=== PATIENT | male | born 1985 | race Caucasian/White ===

== ENCOUNTER 2016-10-10 06:27 | Emergency (ER) | payer OTHER ==
[~2016-10-10] VITALS: Ht 180.3 cm; Wt 79.5 kg
[~2016-10-10 06:27] MED LIST: ALBUTEROL17 GM INH; BENZONATATE PO; CIPRO XR 500 M500 MG PO; DELTASONE20 MG PO; DICYCLOMINE HCL20 MG PO; FLAGYL PO; METRONIDAZOLE PO; PEPCID AC20 M2 PO; PREDNISONE10 MG/DOSE PO; ROBITUSSIN A-C S5 ML PO; ZITHROMAX PO
[2016-10-10] MEDS ORDERED: KLONOPIN1 MG (06:35)
[2016-10-10 07:54] LABS: BASOPHIL# 0.1 X10e3 (0-0.3); BASOPHIL% 0.7 % (0-2.5); EOSINOPHIL# 0.2 X10e3 (0-0.7); EOSINOPHIL% 2.3 % (0.0-7.0); HEMATOCRIT 43.4 % (38.0-50.0); LYMPHOCYTE# 2.3 X10e3 (1.0-3.5); LYMPHOCYTE% 30.5 % (17.0-45.0); MEAN CELL VOLUME 92.5 FL (83-96); MEAN CORPUSCULAR HGB CONC 34.6 g/dL (30-36); MEAN PLATELET VOLUME 8.4 FL (6.5-11.5); MONOCYTE# 0.6 X10e3 (0-1.0); MONOCYTE% 8.2 % (3.0-12.0); NEUTROPHIL# 4.3 X10e3 (1.5-7.1); NEUTROPHIL% 58.3 % (40-75); PLATELET COUNT 238 X10e3 (140-420); RED CELL DISTRIBUTION WIDTH 13.3 % (11.0-15.5); WHITE BLOOD COUNT 7.4 X10e3 (4.0-10.5)
[2016-10-10 07:54] LABS: URINE APPEARANCE CLEAR; URINE BILIRUBIN NEG (NEG); URINE BLOOD NEG (NEG); URINE COLOR YELLOW; URINE GLUCOSE NEG (NORM); URINE KETONE NEG (NEG); URINE LEUKOCYTE ESTERASE NEG (NEG); URINE NITRATE NEG (NEG); URINE PROTEIN NEG (NEG); URINE SPECIFIC GRAVITY <=1.005 (1.003-1.035); URINE UROBILINOGEN 0.2 MG/DL (NORM)
[2016-10-10 07:55] LABS: DIFF IND NO
[2016-10-10 07:55] LABS: MICRO INDICATED? NO; URINE SOURCE CLEAN CATCH
[2016-10-10 08:28] LABS: ALBUMIN SERUM 4.9 g/dL (3.5-5.0); ALKALINE PHOSPHATASE 61 U/L (32-92); ALT (SGPT) 38 U/L (10-40); AMYLASE 13 U/L (0-46); AST (SGOT) 33 U/L (10-42); BILIRUBIN, DIRECT <0.1 mg/dL (0.0-0.2); BILIRUBIN,INDIRECT 0.4 mg/dL (0.0-0.9); BILIRUBIN,TOTAL 0.5 mg/dL (0.2-2.0); BLOOD UREA NITROGEN 13 mg/dL (9-23); BUN/CREATININE RATIO 18.57; CALCIUM SERUM 9.3 mg/dL (8.4-10.2); CARBON DIOXIDE 29 mmol/L (22-31); CHLORIDE 107 mmol/L (100-111); CREATININE SERUM 0.7 mg/dL (0.6-1.4); GLOM FILT RATE Estimated 127.6 mL/min (>60); GLUCOSE FASTING 103 mg/dL (70-110); LIPASE 28 U/L (22-51); POTASSIUM 4.1 mmol/L (3.5-5.1); PROTEIN TOTAL SERUM 7.9 g/dL (6.0-8.3); SODIUM 137 mmol/L (135-145)
== END 2016-10-10 09:03 | disposition home or self-care (01) ==
LOC: SED 06:27
PROVIDERS: Emergency Medicine
DX: K51.90 Ulcerative colitis, unspecified, without complications (principal); F17.200 Nicotine dependence, unspecified, uncomplicated; Z88.1 Allergy status to other antibiotic agents; Z88.8 Allergy status to other drugs, medicaments and biological substances
CPT/HCPCS: 36415; 80048; 80076; 81003; 82150; 83690; 85025; 96361; 96374; 96375; 99284; J1170; J2270; J2930